=== PATIENT | male | born 1990 | race Two or more races ===

== ENCOUNTER 2021-02-02 19:54 | Emergency (ER) | payer MEDICAID, OTHER ==
[~2021-02-02] VITALS: Ht 152.4 cm; Wt 113.4 kg
[2021-02-02 22:21] VITALS: BP 142/85
== END 2021-02-02 22:28 | disposition home or self-care (01) ==
LOC: ER 19:58
DX: L02.414 Cutaneous abscess of left upper limb (principal); F20.9 Schizophrenia, unspecified; F31.9 Bipolar disorder, unspecified; F41.9 Anxiety disorder, unspecified

== ENCOUNTER 2023-03-28 12:52 | Emergency (ER) | payer MEDICAID ==
[~2023-03-28] VITALS: Ht 195.6 cm; Wt 93.2 kg
[2023-03-28] MEDS ORDERED: HYD1TP TOP (15:50)
[2023-03-28] MEDS ORDERED: CLOT1CRE7 EX (15:50)
[2023-03-28] MEDS ORDERED: DOXY100C4 PO (15:52)
[2023-03-28] MEDS ORDERED: cefTRIAXone SOD 1,000 MG VL IM ONE (16:00)
[2023-03-28] MEDS ORDERED: AZITHROMYCIN 250 MG TAB PO ONE (16:00)
[2023-03-28 16:16] VITALS: BP 148/95; PULSE 70; RESP 18; TEMP 98; O2SAT 100
[2023-03-29 06:07] LABS: RPR Non Reactive (Non Reactive)
== END 2023-03-28 16:17 | disposition home or self-care (01) ==
LOC: ER 12:52
DX: B35.6 Tinea cruris (principal)
CPT/HCPCS: 86256; 86592; 96372; 99283; J0696